=== PATIENT | male | born 1965 | race Caucasian/White ===

== ENCOUNTER → 2016-04-15 | Outpatient (CLI) | payer BC | END | disposition home or self-care (01) | LOC: PCVCIMAG 14:47 | PROVIDERS: ATTEND Internal Medicine Cardiovascular Disease | DX: I10 Essential (primary) hypertension (principal); E66.01 Morbid (severe) obesity due to excess calories | CPT/HCPCS: 93325; 93351 ==

== ENCOUNTER → 2018-05-18 | Outpatient (CLI) | payer BC ==
--- NOTE | 2018-05-18 16:10 | PCVCIMAG ---
APPROVED REPORT Study performed: 05/18/2018 14:30:04 Exam: Stress Echocardiogram Indication: elevated calcium score, dyspnea on exertion, HTN, HLP Patient Location: Echo lab Stress Nurse: Alexandra Garcia RN Status: routine Ht: 6 ft 0 in HR: 78 bpm BP: 152/96 mmHg Rhythm: NSR Procedure The patient underwent an Exercise Stress Test using the Rishi Protocol. Blood pressure, heart rate, and EKG were monitored. An Echocardiogram was performed by military technician in four stages in quad fashion. At peak stress, four selected images were obtained and placed side by side with resting images for comparison. Stress Test Details Stress Test: Exercise stress testing was performed using a Rishi protocol. HR Resting HR: 78 bpmMax Heart Rate (APMHR): 168 bpm Max HR Achieved: 164 bpmTarget HR (85% APMHR): 142 bpm % of APMHR: 97 Recovery HR: 118 bpm HR response to stress: Normal HR response to stress BP Resting BP: 152/96 mmHg Max BP: 230/90 mmHg Recovery BP: 166/80 mmHg BP response to stress: Normal blood pressure response to stress. ECG Resting ECG: Sinus Rhythm w/ LVH Stress ECG: Sinus Rhythm w/ LVH ST Change: Normal Arrhythmia: None Recovery ECG: Sinus Rhythm w/ LVH Recovery ST Change: Normal Recovery Arrhythmia: None Clinical Reason for Termination: Maximal effort Stress Symptoms: Dyspnea Exercise duration: 9 min sec Highest Stage Achieved: Stage 3: 3.4 mph at 14% grade. Exercise capacity: 10.4 METs Overall Exercise Capacity for Age: Normal Scale: Active Angina Score: None Pre-Stress Echo The resting Echocardiogram showed normal left ventricular contractility with an estimated Ejection Fraction of about >55%. Normal wall motion in all segments on baseline images. Post-Stress Echo The stress Echocardiogram showed normal left ventricular contractility with an estimated Ejection Fraction of about 65%. Normal augmentation of wall motion in all segments on post stress images. Clinical No clinical or ECG evidence for ischemia. Conclusion Clinical Response: Non-ischemic Exercise Capacity: Average Stress ECG Response: Non-ischemic Stress Echo Images: Non-ischemic The left ventricle is normal in size in both the rest and stress images. Moderate LVH. Other Information Study Quality: Adequate <Conclusion> The left ventricle is normal in size in both the rest and stress images. Moderate LVH.
== END | disposition home or self-care (01) ==
LOC: PCVCIMAG 14:57
PROVIDERS: ATTEND Internal Medicine Cardiovascular Disease
DX: R93.1 Abnormal findings on diagnostic imaging of heart and coronary circulation (principal); I10 Essential (primary) hypertension; R06.00 Dyspnea, unspecified
CPT/HCPCS: 93325; 93351